=== PATIENT | male | born 1965 | race Hispanic/Latino ===

== ENCOUNTER 2016-09-03 08:13 | Outpatient (CLI) | payer OTHER ==
[2016-09-03] MEDS ORDERED: KINEVAC IV ONE ×2 (10:21)
[2016-09-03] MEDS ORDERED: WATER FOR INJ (PF) 10 ML ONE (10:22)
[2016-09-03] MEDS ORDERED: WATER FOR INJ (PF) IV ONE (10:31)
--- NOTE | 2016-09-11 10:38 | Nuclear Medicine Report ---
Hepatobiliary scan: Examination performed with 5 mCi technetium 99m Choletec. History: Abdominal pain. Findings: Uniform distribution of tracer is noted in the liver with subsequent clearance into the biliary system. The gallbladder is visualized. The duodenum is visualized the normal time. No persistence of tracer is noted in the common bile duct and intrahepatic ducts. Impression: No obstruction to the cystic and common bile duct. Post Kinevac ejection fraction 27%.
== END 2016-09-03 08:14 | disposition home or self-care (01) ==
LOC: NM 08:13
PROVIDERS: ATTEND Internal Medicine
DX: R10.9 Unspecified abdominal pain (principal)
CPT/HCPCS: 78227; A9537; J2805